=== PATIENT | male | born 1990 | race Two or more races ===

== ENCOUNTER 2022-03-10 11:47 | Emergency (ER) | payer OTHER ==
[~2022-03-10] VITALS: Ht 172.7 cm; Wt 86.2 kg
[2022-03-10] MEDS ORDERED: KETO10TA2 PO (14:25)
[2022-03-10] MEDS ORDERED: AMOX-CLAV 875-1 EACH PO (14:25)
== END 2022-03-10 14:30 | disposition home or self-care (01) ==
LOC: ER 11:47
DX: J03.90 Acute tonsillitis, unspecified (principal); Z20.822 Contact with and (suspected) exposure to COVID-19